=== PATIENT | female | born 1995 | race Hispanic/Latino ===

== ENCOUNTER 2019-05-26 20:12 | Emergency (ER) | payer BC, OTHER ==
[~2019-05-26] VITALS: Ht 175.3 cm; Wt 106.6 kg
[~2019-05-26 20:12] MED LIST: DEPO-PROVE150 MG/1 M IM; TRAMADOL HCL50 MG PO; [UNRECOGNIZED DRUG - OTHER] PO
[2019-05-26] MEDS ORDERED: NORCO 5-325 TA1 EACH PO (23:11)
[2019-05-26] MEDS ORDERED: ZOFRAN4 MG PO (23:11)
== END 2019-05-26 23:36 | disposition home or self-care (01) ==
LOC: ED 20:12
DX: R10.9 Unspecified abdominal pain (principal); R11.0 Nausea
CPT/HCPCS: 74177; 80053; 81001; 83690; 83735; 84703; 85025; 99284-25; J1170; J2405; J7030; Q9967

== ENCOUNTER 2019-11-14 08:17 | Emergency (ER) | payer BC, OTHER ==
[~2019-11-14] VITALS: Ht 175.3 cm; Wt 106.6 kg
[~2019-11-14 08:17] MED LIST changes: +NORCO 5-325 TA1 EACH PO; +ZOFRAN4 MG PO
[2019-11-14] MEDS ORDERED: AVIANE1 EACH PO (08:36)
[2019-11-14] MEDS ORDERED: NORCO 5-325 TA1 EACH PO (11:20)
== END 2019-11-14 11:28 | disposition home or self-care (01) ==
LOC: ED 08:17
DX: N83.202 Unspecified ovarian cyst, left side (principal); F17.200 Nicotine dependence, unspecified, uncomplicated
CPT/HCPCS: 76830; 76856; 80053; 81001; 83690; 84703; 85025; 96361; 96374; 99284-25; 99406; A9270; J2405; J7030

== ENCOUNTER 2022-05-09 08:46 | Emergency (ER) | payer BC, OTHER ==
[~2022-05-09] VITALS: Ht 175.3 cm; Wt 71.7 kg
[~2022-05-09 08:46] MED LIST changes: +AVIANE1 EACH PO
[2022-05-09] MEDS ORDERED: ESCITALOPRAM OX10 MG PO (09:06)
[2022-05-09] MEDS ORDERED: PYRIDIUM200 MG PO (09:50)
[2022-05-09] MEDS ORDERED: CEPHALEXIN500 M1 PO (09:50)
== END 2022-05-09 09:58 | disposition home or self-care (01) ==
LOC: ED 08:46
DX: N39.0 Urinary tract infection, site not specified (principal); F17.200 Nicotine dependence, unspecified, uncomplicated
CPT/HCPCS: 81001; 84703; 87088; 99283

== ENCOUNTER 2022-08-15 21:20 | Emergency (ER) | payer OTHER ==
[~2022-08-15] VITALS: Ht 175.3 cm; Wt 74.8 kg
[~2022-08-15 21:20] MED LIST changes: +CEPHALEXIN500 M1 PO; +ESCITALOPRAM OX10 MG PO; +PYRIDIUM200 MG PO
[2022-08-15] MEDS ORDERED: OMEPRAZOLE20 MG (21:59)
== END 2022-08-16 00:55 | disposition home or self-care (01) ==
LOC: ED 21:20
DX: O34.81 Maternal care for other abnormalities of pelvic organs, first trimester (principal); N83.202 Unspecified ovarian cyst, left side; O99.331 Smoking (tobacco) complicating pregnancy, first trimester; F17.200 Nicotine dependence, unspecified, uncomplicated; Z3A.01 Less than 8 weeks gestation of pregnancy; Z79.899 Other long term (current) drug therapy
CPT/HCPCS: 36415; 76801; 76817; 80053; 81001; 84702; 84703; 85025; 86900; 86901; 99284-25

== ENCOUNTER 2023-03-03 21:41 | Inpatient (IN) | payer OTHER ==
[~2023-03-03] VITALS: Ht 175.3 cm; Wt 83.9 kg
--- OUTSIDE RECORDS SUMMARY | ~2023-03-03 | XMS | Continuity of Care Document ---
Demographics + + + | Address | [facility] [address] | | | [place] [address] | + + + | Preferred Language | Unknown | + + + | Marital Status | Never | + + + | Moravian Affiliation | Unknown | + + + | Race | Unknown | + + + | Ethnic Group | or | + + + Author + + + | Author | [facility] | + + + | Organization | [facility] | + + + | Address | [address] | | | [place] [address] | + + + | Phone | | + + + Care Team Providers + + + + | Care Turbine Technician Name | Role | Phone | + + + + Unavailable | Unavailable | + + + + Unavailable | Unavailable | + + + + Unavailable | Unavailable | + + + + Unavailable | Unavailable | + + + + Unavailable | Unavailable | + + + + Allergies and Intolerances + + + + + + | date | description | facility | reaction | severity | + + + + + + | (no date) | No Known | [facility] | (no reaction) | (no severity) | | | Allergies | | | | + + + + + + Encounters No information. Functional Status No information. Immunizations No information. Medications + + + + | date | description | facility | + + + + | 2022-05-09 00:00 | MEDROXYPROGESTERONE | [facility] | | | ACETATE | | + + + + | 2022-08-16 00:00 | MEDROXYPROGESTERONE | [facility] | | | ACETATE | | + + + + | 2022-10-26 00:00 | MEDROXYPROGESTERONE | [facility] | | | ACETATE | | + + + + | 2023-01-10 00:00 | MEDROXYPROGESTERONE | [facility] | | | ACETATE | | + + + + | 2019-05-26 00:00 | ONDANSETRON HCL | [facility] | + + + + | 2019-05-26 00:00 | ONDANSETRON HCL | [facility] | + + + + | 2019-05-26 00:00 | ONDANSETRON HCL | [facility] | + + + + | 2019-05-26 00:00 | ONDANSETRON HCL | [facility] | + + + + | 2022-05-09 00:00 | PHENAZOPYRIDINE HCL | [facility] | + + + + | 2022-05-09 00:00 | PHENAZOPYRIDINE HCL | [facility] | + + + + | 2022-05-09 00:00 | PHENAZOPYRIDINE HCL | [facility] | + + + + | 2022-05-09 00:00 | PHENAZOPYRIDINE HCL | [facility] | + + + + | 2022-05-09 00:00 | CEPHALEXIN | [facility] | + + + + | 2022-05-09 00:00 | CEPHALEXIN | [facility] | + + + + | 2022-05-09 00:00 | CEPHALEXIN | [facility] | + + + + | 2022-05-09 00:00 | CEPHALEXIN | [facility] | + + + + | 2022-08-16 00:00 | OMEPRAZOLE | [facility] | + + + + | 2022-10-26 00:00 | OMEPRAZOLE | [facility] | + + + + | 2023-01-10 00:00 | OMEPRAZOLE | [facility] | + + + + | 2022-05-09 00:00 | ESCITALOPRAM OXALATE | [facility] | + + + + | 2022-08-16 00:00 | ESCITALOPRAM OXALATE | [facility] | + + + + | 2022-10-26 00:00 | ESCITALOPRAM OXALATE | [facility] | + + + + | 2023-01-10 00:00 | ESCITALOPRAM OXALATE | [facility] | + + + + | 2022-05-09 00:00 | LEVONORGESTREL-ETH | [facility] | | | ESTRADIOL | | + + + + | 2022-08-16 00:00 | LEVONORGESTREL-ETH | [facility] | | | ESTRADIOL | | + + + + | 2022-10-26 00:00 | LEVONORGESTREL-ETH | [facility] | | | ESTRADIOL | | + + + + | 2023-01-10 00:00 | LEVONORGESTREL-ETH | [facility] | | | ESTRADIOL | | + + + + | 2013-08-01 00:00 | TRAMADOL HCL | [facility] | + + + + | 2013-08-01 00:00 | TRAMADOL HCL | [facility] | + + + + | 2013-08-01 00:00 | TRAMADOL HCL | [facility] | + + + + | 2013-08-01 00:00 | TRAMADOL HCL | [facility] | + + + + | 2019-05-26 00:00 | HYDROCODONE | [facility] | | | BIT/ACETAMINOPHEN | | + + + + | 2019-05-26 00:00 | HYDROCODONE | [facility] | | | BIT/ACETAMINOPHEN | | + + + + | 2019-05-26 00:00 | HYDROCODONE | [facility] | | | BIT/ACETAMINOPHEN | | + + + + | 2019-05-26 00:00 | HYDROCODONE | [facility] | | | BIT/ACETAMINOPHEN | | + + + + Problems + + + + | date | description | facility | + + + + | 2019-05-26 00:00 | Abdominal pain | [facility] | + + + + | 2019-05-26 00:00 | Abdominal pain | [facility] | + + + + | 2019-05-26 00:00 | Abdominal pain | [facility] | + + + + | 2019-05-26 00:00 | Abdominal pain | [facility] | + + + + | 2022-05-09 00:00 | Urinary tract infection | [facility] | + + + + | 2022-05-09 00:00 | Urinary tract infection | [facility] | + + + + | 2022-05-09 00:00 | Urinary tract infection | [facility] | + + + + | 2022-05-09 00:00 | Urinary tract infection | [facility] | + + + + | 2022-05-09 08:47 | NICOTINE DEPENDENCE, | [facility] | | | UNSPECIFIED, UNCOMPLICATED | | + + + + | 2022-05-09 08:47 | URINARY TRACT INFECTION, | [facility] | | | SITE NOT SPECIFIED | | + + + + | 2022-05-09 08:47 | DYSURIA | [facility] | + + + + | 2022-08-15 21:22 | NICOTINE DEPENDENCE, | [facility] | | | UNSPECIFIED, UNCOMPLICATED | | + + + + | 2022-08-15 21:22 | UNSPECIFIED OVARIAN CYST, | [facility] | | | LEFT SIDE | | + + + + | 2022-08-15 21:22 | MATERNAL CARE FOR OTH | [facility] | | | ABNLT OF PELVIC ORGANS, | | | | FIRS | | + + + + | 2022-08-15 21:22 | SMOKING (TOBACCO) | [facility] | | | COMPLICATING , | | | | FIRST TR | | + + + + | 2022-08-15 21:22 | PELVIC AND PERINEAL PAIN | [facility] | + + + + | 2022-08-15 21:22 | LESS THAN 8 WEEKS | [facility] | | | GESTATION OF | | + + + + | 2022-08-15 21:22 | OTHER ASSISTED (CURRENT) | [facility] | | | DRUG THERAPY | | + + + + | 2022-08-16 00:00 | Cyst of left ovary | [facility] | + + + + | 2022-08-16 00:00 | Cyst of left ovary | [facility] | + + + + | 2022-08-16 00:00 | Cyst of left ovary | [facility] | + + + + | 2022-08-27 15:47 | ENCOUNTER FOR SUPRVSN OF | [facility] | | | NORMAL , FIRST | | | | TRIMESTER | | + + + + | 2022-08-27 15:47 | LESS THAN 8 WEEKS | [facility] | | | GESTATION OF | | + + + + | 2022-09-30 13:02 | HEMORRHAGE IN EARLY | [facility] | | | , UNSPECIFIED | | + + + + | 2022-09-30 13:02 | OTH RELATED | [facility] | | | CONDITIONS, FIRST TRIMESTER | | | | | | + + + + | 2022-09-30 13:02 | 11 WEEKS GESTATION OF | [facility] | | | | | + + + + | 2022-09-30 13:02 | UNSPECIFIED BLOOD TYPE, RH | [facility] | | | NEGATIVE | | + + + + | 2022-10-25 22:01 | NICOTINE DEPENDENCE, | [facility] | | | UNSPECIFIED, UNCOMPLICATED | | + + + + | 2022-10-25 22:01 | SMOKING (TOBACCO) | [facility] | | | COMPLICATING , | | | | UNSP TRI | | + + + + | 2022-10-25 22:01 | UNSPECIFIED ABDOMINAL PAIN | [facility] | | | | | + + + + | 2022-10-25 22:01 | WEEKS OF GESTATION OF | [facility] | | | NOT SPECIFIED | | + + + + | 2022-10-26 00:00 | Normal intrauterine | [facility] | | | on | | | | ultrasound | | + + + + | 2022-11-05 12:46 | SUPERVISION OF OTHER HIGH | [facility] | | | RISK PREGNANCIES, FIRST | | | | TRIMESTER | | + + + + | 2022-11-19 12:45 | SUPERVISION OF OTHER HIGH | [facility] | | | RISK PREGNANCIES, FIRST | | | | TRIMESTER | | + + + + | 2022-12-02 14:30 | SUPERVISION OF OTHER HIGH | [facility] | | | RISK PREGNANCI | | + + + + | 2022-12-06 10:48 | SUPERVISION OF OTHER HIGH | [facility] | | | RISK PREGNANCIES, FIRST | | | | TRIMESTER | | + + + + | 2022-12-16 09:49 | SUPERVISION OF OTHER HIGH | [facility] | | | RISK PREGNANCIES, FIRST | | | | TRIMESTER | | + + + + | 2022-12-31 12:42 | SUPERVISION OF OTHER HIGH | [facility] | | | RISK PREGNANCIES, FIRST | | | | TRIMESTER | | + + + + | 2023-01-10 00:00 | Contusion of foot | [facility] | + + + + | 2023-01-10 20:06 | NICOTINE DEPENDENCE, | [facility] | | | UNSPECIFIED, UNCOMPLICATED | | + + + + | 2023-01-10 20:06 | GASTRO-ESOPHAGEAL REFLUX | [facility] | | | DISEASE WITHOUT ESOPHAGIT | | + + + + | 2023-01-10 20:06 | PAIN IN LEFT TOE(S) | [facility] | + + + + | 2023-01-10 20:06 | CONTUSION OF LEFT FOOT, | [facility] | | | INITIAL ENCOUNTER | | + + + + | 2023-01-10 20:06 | OTH CAUSE OF STRIKE BY | [facility] | | | THROWN, PROJECTED OR FALL O | | | | | | + + + + | 2023-01-10 20:06 | OTHER ASSISTANT ELEMENTARY TEACHER (CURRENT) | [facility] | | | DRUG THERAPY | | + + + + | 2023-02-09 14:24 | ANTEPARTUM HEMORRHAGE, | [facility] | | | UNSPECIFIED, THIRD | | | | TRIMESTER | | + + + + | 2023-02-09 14:24 | 30 WEEKS GESTATION OF | [facility] | | | | | + + + + | 2023-02-10 11:21 | ANTEPARTUM HEMORRHAGE, | [facility] | | | UNSPECIFIED, THIRD | | | | TRIMESTER | | + + + + | 2023-02-10 11:21 | 30 WEEKS GESTATION OF | [facility] | | | | | + + + + | 2023-02-18 15:54 | CRAMP AND SPASM | [facility] | + + + + | 2023-02-18 15:54 | 31 WEEKS GESTATION OF | [facility] | | | | | + + + + | 2023-02-25 16:45 | SUPERVISION OF HIGH RISK | [facility] | | | , UNSP, THIRD | | | | TRIMESTER | | + + + + | 2023-02-25 16:45 | 32 WEEKS GESTATION OF | [facility] | | | | | + + + + Procedures No information. Results/Labs +--------+--------+ +---------+--------+---------+ | test | date | facility | value | unit | notes | +--------+--------+ +---------+--------+---------+ + + | Result panel 1 | + + + + + + + + + | | 2022-05-09 | [facility] | YELLOW | (missing) | (missing) | | (unavailable | 08:57 [facility] | | | | + + + + + + + + + | Result panel 2 | + + + + + +---------+ + + | | 2022-05-09 | [facility] | CLEAR | (missing) | (missing) | | (unavailable | 08:57 [facility] | | | | + + + +---------+ + + + + | Result panel 3 | + + + + + + + + + | | 2022-05-09 | [facility] | NEGATIVE | (missing) | (missing) | | (unavailable | 08:57 [facility] | | | | + + + + + + + + + | Result panel 4 | + + + + + + + + + | | 2022-05-09 | [facility] | NEGATIVE | (missing) | (missing) | | (unavailable | 08:57 [facility] | | | | + + + + + + + + + | Result panel 5 | + + + + + + + + + | | 2022-05-09 | [facility] | NEGATIVE | (missing) | (missing) | | (unavailable | 08:57 [facility] | | | | + + + + + + + + + | Result panel 6 | + + + + + +---------+ + + | | 2022-05-09 | [facility] | 1.025 | (missing) | (missing) | | (unavailable | 08:57 [facility] | | | | + + + +---------+ + + + + | Result panel 7 | + + + + + + + + + | | 2022-05-09 | [facility] | MODERATE | (missing) | (missing) | | (unavailable | 08:57 [facility] | | | | + + + + + + + + + | Result panel 8 | + + + + + +-------+ + + | | 2022-05-09 | [facility] | 6.0 | (missing) | (missing) | | (unavailable | 08:57 [facility] | | | | + + + +-------+ + + + + | Result panel 9 | + + + + + + + + + | | 2022-05-09 | [facility] | NEGATIVE | (missing) | (missing) | | (unavailable | 08:57 [facility] | | | | + + + + + + + + + | Result panel 10 | + + + + + + + + + | | 2022-05-09 | [facility] | NORMAL | (missing) | (missing) | | (unavailable | 08:57 [facility] | | | | + + + + + + + + + | Result panel 11 | + + + + + + + + + | | 2022-05-09 | [facility] | NEGATIVE | (missing) | (missing) | | (unavailable | 08:57 [facility] | | | | + + + + + + + + + | Result panel 12 | + + + + + + + + + | | 2022-05-09 | [facility] | MODERATE | (missing) | (missing) | | (unavailable | 08:57 [facility] | | | | + + + + + + + + + | Result panel 13 | + + + + + +---------+ + + | | 2022-05-09 | [facility] | 12-20 | (missing) | (missing) | | (unavailable | 08:57 [facility] | | | | + + + +---------+ + + + + | Result panel 14 | + + + + + +--------+ + + | | 2022-05-09 | [facility] | 7-11 | (missing) | (missing) | | (unavailable | 08:57 [facility] | | | | + + + +--------+ + + + + | Result panel 15 | + + + + + +-----+ + + | | 2022-05-09 | [facility] | 0 | (missing) | (missing) | | (unavailable | 08:57 [facility] | | | | + + + +-----+ + + + + | Result panel 16 | + + + + + + + + + | | 2022-05-09 | [facility] | NONE SEEN | (missing) | (missing) | | (unavailable | 08:57 [facility] | | | | + + + + + + + + + | Result panel 17 | + + + + + +--------+ + + | | 2022-05-09 | [facility] | RARE | (missing) | (missing) | | (unavailable | 08:57 [facility] | | | | + + + +--------+ + + + + | Result panel 18 | + + + + + + + + + | | 2022-05-09 | [facility] | NONE SEEN | (missing) | (missing) | | (unavailable | 08:57 [facility] | | | | + + + + + + + + + | Result panel 19 | + + + + + +-------+ + + | | 2022-05-09 | [facility] | Yes | (missing) | (missing) | | (unavailable | 08:57 [facility] | | | | + + + +-------+ + + + + | Result panel 20 | + + + + + + + + + | | 2022-05-09 | [facility] | CLEAN CATCH | (missing) | (missing) | | (unavailable | 08:57 [facility] | | | | + + + + + + + + + | Result panel 21 | + + + + + + + + + | | 2022-05-09 | [facility] | NEGATIVE | (missing) | (missing) | | (unavailable | 08:57 [facility] | | | | + + + + + + + + + | Result panel 22 | + + + + + +-----+ + + | | 2022-08-15 | [facility] | A | (missing) | (missing) | | (unavailable | 21:50:08 [facility] | | | | + + + +-----+ + + + + | Result panel 23 | + + + + + + + + + | | 2022-08-15 | [facility] | NEGATIVE | (missing) | (missing) | | (unavailable | 21:50:08 [facility] | | | | + + + + + + + + + | Result panel 24 | + + + + + +-------+ + + | | 2022-08-15 | [facility] | 8.5 | (missing) | (missing) | | (unavailable | 21:50:08 [facility] | | | | + + + +-------+ + + + + | Result panel 25 | + + + + + +--------+ + + | | 2022-08-15 | [facility] | 3.96 | (missing) | (missing) | | (unavailable | 21:50:08 [facility] | | | | + + + +--------+ + + + + | Result panel 26 | + + + + + +--------+ + + | | 2022-08-15 | [facility] | 13.0 | (missing) | (missing) | | (unavailable | 21:50:08 [facility] | | | | + + + +--------+ + + + + | Result panel 27 | + + + + + +--------+ + + | | 2022-08-15 | [facility] | 37.2 | (missing) | (missing) | | (unavailable | 21:50:08 [facility] | | | | + + + +--------+ + + + + | Result panel 28 | + + + + + +--------+ + + | | 2022-08-15 | [facility] | 94.0 | (missing) | (missing) | | (unavailable | 21:50:08 [facility] | | | | + + + +--------+ + + + + | Result panel 29 | + + + + + +--------+ + + | | 2022-08-15 | [facility] | 32.8 | (missing) | (missing) | | (unavailable | 21:50:08 [facility] | | | | + + + +--------+ + + + + | Result panel 30 | + + + + + +--------+ + + | | 2022-08-15 | [facility] | 34.9 | (missing) | (missing) | | (unavailable | 21:50:08 [facility] | | | | + + + +--------+ + + + + | Result panel 31 | + + + + + +--------+ + + | | 2022-08-15 | [facility] | 12.4 | (missing) | (missing) | | (unavailable | 21:50:08 [facility] | | | | + + + +--------+ + + + + | Result panel 32 | + + + + + +-------+ + + | | 2022-08-15 | [facility] | 183 | (missing) | (missing) | | (unavailable | 21:50:08 [facility] | | | | + + + +-------+ + + + + | Result panel 33 | + + + + + +--------+ + + | | 2022-08-15 | [facility] | 57.3 | (missing) | (missing) | | (unavailable | 21:50:08 [facility] | | | | + + + +--------+ + + + + | Result panel 34 | + + + + + +--------+ + + | | 2022-08-15 | [facility] | 35.2 | (missing) | (missing) | | (unavailable | 21:50:08 [facility] | | | | + + + +--------+ + + + + | Result panel 35 | + + + + + +-------+ + + | | 2022-08-15 | [facility] | 6.2 | (missing) | (missing) | | (unavailable | 21:50:08 [facility] | | | | + + + +-------+ + + + + | Result panel 36 | + + + + + +-------+ + + | | 2022-08-15 | [facility] | 0.9 | (missing) | (missing) | | (unavailable | 21:50:08 [facility] | | | | + + + +-------+ + + + + | Result panel 37 | + + + + + +-------+ + + | | 2022-08-15 | [facility] | 0.4 | (missing) | (missing) | | (unavailable | 21:50:08 [facility] | | | | + + + +-------+ + + + + | Result panel 38 | + + + + + + + + + | | 2022-08-15 | [facility] | YELLOW | (missing) | (missing) | | (unavailable | 21:50:08 [facility] | | | | + + + + + + + + + | Result panel 39 | + + + + + + + + + | | 2022-08-15 | [facility] | CLOUDY | (missing) | (missing) | | (unavailable | 21:50:08 [facility] | | | | + + + + + + + + + | Result panel 40 | + + + + + + + + + | | 2022-08-15 | [facility] | NEGATIVE | (missing) | (missing) | | (unavailable | 21:50:08 [facility] | | | | + + + + + + + + + | Result panel 41 | + + + + + + + + + | | 2022-08-15 | [facility] | NEGATIVE | (missing) | (missing) | | (unavailable | 21:50:08 [facility] | | | | + + + + + + + + + | Result panel 42 | + + + + + + + + + | | 2022-08-15 | [facility] | NEGATIVE | (missing) | (missing) | | (unavailable | 21:50:08 [facility] | | | | + + + + + + + + + | Result panel 43 | + + + + + +---------+ + + | | 2022-08-15 | [facility] | 1.015 | (missing) | (missing) | | (unavailable | 21:50:08 [facility] | | | | + + + +---------+ + + + + | Result panel 44 | + + + + + + + + + | | 2022-08-15 | [facility] | NEGATIVE | (missing) | (missing) | | (unavailable | 21:50:08 [facility] | | | | + + + + + + + + + | Result panel 45 | + + + + + +-------+ + + | | 2022-08-15 | [facility] | 8.0 | (missing) | (missing) | | (unavailable | 21:50:08 [facility] | | | | + + + +-------+ + + + + | Result panel 46 | + + + + + + + + + | | 2022-08-15 | [facility] | NEGATIVE | (missing) | (missing) | | (unavailable | 21:50:08 [facility] | | | | + + + + + + + + + | Result panel 47 | + + + + + +-------+ + + | | 2022-08-15 | [facility] | 1.0 | (missing) | (missing) | | (unavailable | 21:50:08 [facility] | | | | + + + +-------+ + + + + | Result panel 48 | + + + + + + + + + | | 2022-08-15 | [facility] | NEGATIVE | (missing) | (missing) | | (unavailable | 21:50:08 [facility] | | | | + + + + + + + + + | Result panel 49 | + + + + + +---------+ + + | | 2022-08-15 | [facility] | LARGE | (missing) | (missing) | | (unavailable | 21:50:08 [facility] | | | | + + + +---------+ + + + + | Result panel 50 | + + + + + +-------+ + + | | 2022-08-15 | [facility] | 4-6 | (missing) | (missing) | | (unavailable | 21:50:08 [facility] | | | | + + + +-------+ + + + + | Result panel 51 | + + + + + +--------+ + + | | 2022-08-15 | [facility] | 7-11 | (missing) | (missing) | | (unavailable | 21:50:08 [facility] | | | | + + + +--------+ + + + + | Result panel 52 | + + + + + + + + + | | 2022-08-15 | [facility] | SQUAMOUS 3+ | (missing) | (missing) | | (unavailable | 21:50:08 [facility] | | | | + + + + + + + + + | Result panel 53 | + + + + + +------+ + + | | 2022-08-15 | [facility] | No | (missing) | (missing) | | (unavailable | 21:50:08 [facility] | | | | + + + +------+ + + + + | Result panel 54 | + + + + + + + + + | | 2022-08-15 | [facility] | CLEAN CATCH | (missing) | (missing) | | (unavailable | 21:50:08 [facility] | | | | + + + + + + + + + | Result panel 55 | + + + + + +-------+---------+ + | | 2022-08-15 | [facility] | 100 | mg/dL | (missing) | | (unavailable | 21:50:08 [facility] | | | | + + + +-------+---------+ + + + | Result panel 56 | + + + + + +------+---------+ + | | 2022-08-15 | [facility] | 13 | mg/dL | (missing) | | (unavailable | 21:50:08 [facility] | | | | + + + +------+---------+ + + + | Result panel 57 | + + + + + +--------+---------+ + | | 2022-08-15 | [facility] | 0.76 | mg/dL | (missing) | | (unavailable | 21:50:08 [facility] | | | | + + + +--------+---------+ + + + | Result panel 58 | + + + + + +-------+ + + | | 2022-08-15 | [facility] | 111 | (missing) | (missing) | | (unavailable | 21:50:08 [facility] | | | | + + + +-------+ + + + + | Result panel 59 | + + + + + +---------+ + + | | 2022-08-15 | [facility] | 17.10 | (missing) | (missing) | | (unavailable | 21:50:08 [facility] | | | | + + + +---------+ + + + + | Result panel 60 | + + + + + +-------+ + + | | 2022-08-15 | [facility] | 139 | (missing) | (missing) | | (unavailable | 21:50:08 [facility] | | | | + + + +-------+ + + + + | Result panel 61 | + + + + + +-------+ + + | | 2022-08-15 | [facility] | 3.5 | (missing) | (missing) | | (unavailable | 21:50:08 [facility] | | | | + + + +-------+ + + + + | Result panel 62 | + + + + + +-------+ + + | | 2022-08-15 | [facility] | 105 | (missing) | (missing) | | (unavailable | 21:50:08 [facility] | | | | + + + +-------+ + + + + | Result panel 63 | + + + + + +------+ + + | | 2022-08-15 | [facility] | 26 | (missing) | (missing) | | (unavailable | 21:50:08 | [facility] | | | | + + + +------+ + + + + | Result panel 64 | + + + + + +--------+ + + | | 2022-08-15 | [facility] | 11.5 | (missing) | (missing) | | (unavailable | 21:50:08 | [facility] | | | | + + + +--------+ + + + + | Result panel 65 | + + + + + +-------+---------+ + | | 2022-08-15 | [facility] | 8.5 | mg/dL | (missing) | | (unavailable | 21:50:08 | [facility] | | | | + + + +-------+---------+ + + + | Result panel 66 | + + + + + +-------+ + + | | 2022-08-15 | [facility] | 6.9 | (missing) | (missing) | | (unavailable | 21:50:08 | [facility] | | | | + + + +-------+ + + + + | Result panel 67 | + + + + + +-------+ + + | | 2022-08-15 | [facility] | 3.6 | (missing) | (missing) | | (unavailable | 21:50:08 | [facility] | | | | + + + +-------+ + + + + | Result panel 68 | + + + + + +-------+ + + | | 2022-08-15 | [facility] | 3.3 | (missing) | (missing) | | (unavailable | 21:50:08 | [facility] | | | | + + + +-------+ + + + + | Result panel 69 | + + + + + +--------+ + + | | 2022-08-15 | [facility] | 1.09 | (missing) | (missing) | | (unavailable | 21:50:08 | [facility] | | | | + + + +--------+ + + + + | Result panel 70 | + + + + + +-------+ + + | | 2022-08-15 | [facility] | 0.4 | (missing) | (missing) | | (unavailable | 21:50:08 | [facility] | | | | + + + +-------+ + + + + | Result panel 71 | + + + + + +------+ + + | | 2022-08-15 | [facility] | 13 | (missing) | (missing) | | (unavailable | 21:50:08 | [facility] | | | | + + + +------+ + + + + | Result panel 72 | + + + + + +------+ + + | | 2022-08-15 | [facility] | 15 | (missing) | (missing) | | (unavailable | 21:50:08 | [facility] | | | | + + + +------+ + + + + | Result panel 73 | + + + + + +------+ + + | | 2022-08-15 | [facility] | 70 | (missing) | (missing) | | (unavailable | 21:50:08 | [facility] | | | | + + + +------+ + + + + | Result panel 74 | + + + + + +--------+ + + | | 2022-08-15 | [facility] | 2808 | (missing) | (missing) | | (unavailable | 21:50:08 | [facility] | | | | + + + +--------+ + + + + | Result panel 75 | + + + + + + + + + | | 2022-08-15 | [facility] | POSITIVE | (missing) | (missing) | | (unavailable | 21:50:08 | [facility] | | | | + + + + + + + + + | Result panel 76 | + + + + + + + + + | | 2022-10-25 | [facility] | YELLOW | (missing) | (missing) | | (unavailable | 22:19:07 | [facility] | | | | + + + + + + + + + | Result panel 77 | + + + + + +---------+ + + | | 2022-10-25 | [facility] | CLEAR | (missing) | (missing) | | (unavailable | ::07 | [facility] | | | | + + + +---------+ + + + + | Result panel 78 | + + + + + + + + + | | 2022-10-25 | [facility] | NEGATIVE | (missing) | (missing) | | (unavailable | :19:07 | [facility] | | | | + + + + + + + + + | Result panel 79 | + + + + + + + + + | | 2022-10-25 | [facility] | NEGATIVE | (missing) | (missing) | | (unavailable | 22:19:07 | [facility] | | | | + + + + + + + + + | Result panel 80 | + + + + + + + + + | | 2022-10-25 | [facility] | NEGATIVE | (missing) | (missing) | | (unavailable | 22:19:07 | [facility] | | | | + + + + + + + + + | Result panel 81 | + + + + + +---------+ + + | | 2022-10-25 | [facility] | 1.025 | (missing) | (missing) | | (unavailable | 22:19:07 [facility] | | | | + + + +---------+ + + + + | Result panel 82 | + + + + + + + + + | | 2022-10-25 | [facility] | NEGATIVE | (missing) | (missing) | | (unavailable | 22:19:07 [facility] | | | | + + + + + + + + + | Result panel 83 | + + + + + +-------+ + + | | 2022-10-25 | [facility] | 6.0 | (missing) | (missing) | | (unavailable | 22:19:07 [facility] | | | | + + + +-------+ + + + + | Result panel 84 | + + + + + + + + + | | 2022-10-25 | [facility] | NEGATIVE | (missing) | (missing) | | (unavailable | 22:19:07 [facility] | | | | + + + + + + + + + | Result panel 85 | + + + + + + + + + | | 2022-10-25 | [facility] | NORMAL | (missing) | (missing) | | (unavailable | 22:19:07 [facility] | | | | + + + + + + + + + | Result panel 86 | + + + + + + + + + | | 2022-10-25 | [facility] | NEGATIVE | (missing) | (missing) | | (unavailable | 22:19:07 [facility] | | | | + + + + + + + + + | Result panel 87 | + + + + + + + + + | | 2022-10-25 | [facility] | NEGATIVE | (missing) | (missing) | | (unavailable | 22:19:07 [facility] | | | + + + + + + + + + | Result panel 88 | + + + + + +--------+ + + | | 2022-10-25 | [facility] | 13.2 | (missing) | (missing) | | (unavailable | :25:07 | [facility] | | | | + + + +--------+ + + + + | Result panel 89 | + + + + + +--------+ + + | | 2022-10-25 | [facility] | 75.8 | (missing) | (missing) | | (unavailable | ::07 | [facility] | | | | + + + +--------+ + + + + | Result panel 90 | + + + + + +--------+ + + | | 2022-10-25 | [facility] | 18.6 | (missing) | (missing) | | (unavailable | 22:25:07 [facility] | | | + + + +--------+ + + + + | Result panel 91 | + + + + + +-------+ + + | | 2022-10-25 | [facility] | 4.8 | (missing) | (missing) | | (unavailable | 22:25:07 [facility] | | | + + + +-------+ + + + + | Result panel 92 | + + + + + +-------+ + + | | 2022-10-25 | [facility] | 0.6 | (missing) | (missing) | | (unavailable | [facility]:25:07 [facility] | | | + + + +-------+ + + + + | Result panel 93 | + + + + + +-------+ + + | | 2022-10-25 | [facility] | 0.2 | (missing) | (missing) | | (unavailable | 22::07 [facility] | | | + + + +-------+ + + + + | Result panel 94 | + + + + + +--------+ + + | | 2022-10-25 | [facility] | 3.98 | (missing) | (missing) | | (unavailable | [facility]:25:07 [facility] | | | + + + +--------+ + + + + | Result panel 95 | + + + + + +------+---------+ + | | 2022-10-25 | [facility] | 88 | mg/dL | (missing) | | (unavailable | 22:25:07 [facility] | | | + + + +------+---------+ + + + | Result panel 96 | + + + + + +-----+---------+ + | | 2022-10-25 | [facility] | 8 | mg/dL | (missing) | | (unavailable | 22:25:07 [facility] | | | | + + + +-----+---------+ + + + | Result panel 97 | + + + + + +--------+---------+ + | | 2022-10-25 | [facility] | 0.51 | mg/dL | (missing) | | (unavailable | 22:25:07 [facility] | | | + + + +--------+---------+ + + + | Result panel 98 | + + + + + +--------+ + + | | 2022-10-25 | [facility] | 12.7 | (missing) | (missing) | | (unavailable | 22::07 [facility] | | | | + + + +--------+ + + + + | Result panel 99 | + + + + + +-------+ + + | | 2022-10-25 | [facility] | 131 | (missing) | (missing) | | (unavailable | ::07 | [facility] | | | + + + +-------+ + + + + | Result panel 100 | + + + + + +---------+ + + | | 2022-10-25 | [facility] | 15.68 | (missing) | (missing) | | (unavailable | 22:25:07 [facility] | | | + + + +---------+ + + + + | Result panel 101 | + + + + + +-------+ + + | | 2022-10-25 | [facility] | 137 | (missing) | (missing) | | (unavailable | ::07 [facility] | | | + + + +-------+ + + + + | Result panel 102 | + + + + + +-------+ + + | | 2022-10-25 | [facility] | 3.6 | (missing) | (missing) | | (unavailable | 22:25:07 [facility] | | | + + + +-------+ + + + + | Result panel 103 | + + + + + +-------+ + + | | 2022-10-25 | [facility] | 103 | (missing) | (missing) | | (unavailable | ::07 [facility] | | | + + + +-------+ + + + + | Result panel 104 | + + + + + +------+ + + | | 2022-10-25 | [facility] | 25 | (missing) | (missing) | | (unavailable | 22:25:07 [facility] | | | + + + +------+ + + + + | Result panel 105 | + + + + + +--------+ + + | | 2022-10-25 | [facility] | 12.6 | (missing) | (missing) | | (unavailable | ::07 [facility] | | | + + + +--------+ + + + + | Result panel 106 | + + + + + +-------+---------+ + | | 2022-10-25 | [facility] | 8.4 | mg/dL | (missing) | | (unavailable | [facility]:25:07 [facility] | | | + + + +-------+---------+ + + + | Result panel 107 | + + + + + +-------+---------+ + | | 2022-10-25 | [facility] | 1.8 | mg/dL | (missing) | | (unavailable | [facility]:25:07 [facility] | | | + + + +-------+---------+ + + + | Result panel 108 | + + + + + +-------+ + + | | 2022-10-25 | [facility] | 6.6 | (missing) | (missing) | | (unavailable | [facility]25:07 [facility] | | | + + + +-------+ + + + + | Result panel 109 | + + + + + +--------+ + + | | 2022-10-25 | [facility] | 37.9 | (missing) | (missing) | | (unavailable | [facility]25:07 [facility] | | | + + + +--------+ + + + + | Result panel 110 | + + + + + +-------+ + + | | 2022-10-25 | [facility] | 3.0 | (missing) | (missing) | | (unavailable | [facility]25:07 [facility] | | | + + + +-------+ + + + + | Result panel 111 | + + + + + +-------+ + + | | 2022-10-25 | [facility] | 3.6 | (missing) | (missing) | | (unavailable | 22:25:07 [facility] | | | + + + +-------+ + + + + | Result panel 112 | + + + + + +--------+ + + | | 2022-10-25 | [facility] | 0.83 | (missing) | (missing) | | (unavailable | ::07 [facility] | | | | + + + +--------+ + + + + | Result panel 113 | + + + + + +-------+ + + | | 2022-10-25 | [facility] | 0.4 | (missing) | (missing) | | (unavailable | ::07 [facility] | | | | + + + +-------+ + + + + | Result panel 114 | + + + + + +------+ + + | | 2022-10-25 | [facility] | 15 | (missing) | (missing) | | (unavailable | 22[facility]25:07 [facility] | | | + + + +------+ + + + + | Result panel 115 | + + + + + +------+ + + | | 2022-10-25 | [facility] | 15 | (missing) | (missing) | | (unavailable | [facility]25:07 [facility] | | | + + + +------+ + + + + | Result panel 116 | + + + + + +------+ + + | | 2022-10-25 | [facility] | 58 | (missing) | (missing) | | (unavailable | :07 [facility] | | | | + + + +------+ + + + + | Result panel 117 | + + + + + + + + + | | 2022-10-25 | [facility] | POSITIVE | (missing) | (missing) | | (unavailable | :07 [facility] | | | | + + + + + + + + + | Result panel 118 | + + + + + +--------+ + + | | 2022-10-25 | [facility] | 95.2 | (missing) | (missing) | | (unavailable | 22[facility]25:07 [facility] | | | + + + +--------+ + + + + | Result panel 119 | + + + + + +--------+ + + | | 2022-10-25 | [facility] | 32.0 | (missing) | (missing) | | (unavailable | [facility]25:07 [facility] | | | + + + +--------+ + + + + | Result panel 120 | + + + + + +--------+ + + | | 2022-10-25 | [facility] | 33.6 | (missing) | (missing) | | (unavailable | [facility]:25:07 [facility] | | | + + + +--------+ + + + + | Result panel 121 | + + + + + +--------+ + + | | 2022-10-25 | [facility] | 12.7 | (missing) | (missing) | | (unavailable | [facility]25:07 [facility] | | | + + + +--------+ + + + + | Result panel 122 | + + + + + +-------+ + + | | 2022-10-25 | [facility] | 222 | (missing) | (missing) | | (unavailable | [facility]25:07 [facility] | | | + + + +-------+ + + Social History No information. Vital Signs + + + +---------+ | date | measurement | value | units | + + + +---------+ | 2022-05-09 00:00 | BMI | 23.3 | kg/m2 | + + + +---------+ | 2022-05-09 00:00 | BP_diastolic | 68 | mmHg | + + + +---------+ | 2022-05-09 00:00 | BP_systolic | 108 | mmHg | + + + +---------+ | 2022-05-09 00:00 | heart_rate | 89 | /min | + + + +---------+ | 2022-05-09 00:00 | height_metric | 175.26 | cm | + + + +---------+ | 2022-05-09 00:00 | height_standard | 69 | in | + + + +---------+ | 2022-05-09 00:00 | o2_saturation | 99 | % | + + + +---------+ | 2022-05-09 00:00 | respiration_rate | 16 | /min | + + + +---------+ | 2022-05-09 00:00 | temperature_metric | 37 | C | | | | | | + + + +---------+ | 2022-05-09 00:00 | | 98.6 | F | | | temperature_standar | | | | | d | | | + + + +---------+ | 2022-05-09 00:00 | weight_metric | 71.67 | kg | + + + +---------+ | 2022-05-09 00:00 | weight_standard | 158 | lb | + + + +---------+ | 2022-05-09 00:00 | weight_standard | 158.01 | lb | + + + +---------+ | 2022-08-15 00:00 | BMI | 24.4 | kg/m2 | + + + +---------+ | 2022-08-15 00:00 | height_metric | 175.26 | cm | + + + +---------+ | 2022-08-15 00:00 | height_standard | 69 | in | + + + +---------+ | 2022-08-15 00:00 | weight_metric | 74.8 | kg | + + + +---------+ | 2022-08-15 00:00 | weight_standard | 164.91 | lb | + + + +---------+ | 2022-08-16 00:00 | BP_diastolic | 64 | mmHg | + + + +---------+ | 2022-08-16 00:00 | BP_systolic | 99 | mmHg | + + + +---------+ | 2022-08-16 00:00 | heart_rate | 70 | /min | + + + +---------+ | 2022-08-16 00:00 | o2_saturation | 99 | % | + + + +---------+ | 2022-08-16 00:00 | respiration_rate | 16 | /min | + + + +---------+ | 2022-08-16 00:00 | temperature_metric | 37 | C | | | | | | + + + +---------+ | 2022-08-16 00:00 | | 98.6 | F | | | temperature_standar | | | | | d | | | + + + +---------+ | 2022-10-25 00:00 | BMI | 25.1 | kg/m2 | + + + +---------+ | 2022-10-25 00:00 | height_metric | 175.26 | cm | + + + +---------+ | 2022-10-25 00:00 | height_standard | 69 | in | + + + +---------+ | 2022-10-25 00:00 | weight_metric | 77 | kg | + + + +---------+ | 2022-10-25 00:00 | weight_standard | 169.76 | lb | + + + +---------+ | 2022-10-26 00:00 | BP_diastolic | 59 | mmHg | + + + +---------+ | 2022-10-26 00:00 | BP_systolic | 97 | mmHg | + + + +---------+ | 2022-10-26 00:00 | heart_rate | 90 | /min | + + + +---------+ | 2022-10-26 00:00 | o2_saturation | 97 | % | + + + +---------+ | 2022-10-26 00:00 | respiration_rate | 14 | /min | + + + +---------+ | 2022-10-26 00:00 | temperature_metric | 36.83 | C | | | | | | + + + +---------+ | 2022-10-26 00:00 | | 98.3 | F | | | temperature_standar | | | | | d | | | + + + +---------+ | 2023-01-10 00:00 | BMI | 26.4 | kg/m2 | + + + +---------+ | 2023-01-10 00:00 | BP_diastolic | 63 | mmHg | + + + +---------+ | 2023-01-10 00:00 | BP_systolic | 102 | mmHg | + + + +---------+ | 2023-01-10 00:00 | heart_rate | 88 | /min | + + + +---------+ | 2023-01-10 00:00 | height_metric | 175.26 | cm | + + + +---------+ | 2023-01-10 00:00 | height_standard | 69 | in | + + + +---------+ | 2023-01-10 00:00 | o2_saturation | 99 | % | + + + +---------+ | 2023-01-10 00:00 | respiration_rate | 16 | /min | + + + +---------+ | 2023-01-10 00:00 | temperature_metric | 37 | C | | | | | | + + + +---------+ | 2023-01-10 00:00 | | 98.6 | F | | | temperature_standar | | | | | d | | | + + + +---------+ | 2023-01-10 00:00 | weight_metric | 81 | kg | + + + +---------+ | 2023-01-10 00:00 | weight_standard | 178.57 | lb | + + + +---------+ | 2023-01-10 00:00 | weight_standard | 178.58 | lb | + + + +---------+"
[~2023-03-03 21:41] MED LIST changes: +AZESCO TABLET1 EACH PO; +OMEPRAZOLE20 MG
[2023-03-03 23:20] LABS: BASOPHILS 0.2 % (0-2); HEMATOCRIT 35.8 % (35.0-50.0); HEMOGLOBIN 12.1 g/dL (12.0-18.0); LYMPHOCYTES 10.4 % (24-44); MCH 31.9 (27-36); MCHC 33.7 g/dl (30-36); MCV 94.7 fl (81-99); NEUTROPHILS 82.4 % (39-80); PLATELET COUNT 211 K/uL (140-440); RBC 3.78 M/ul (4.3-5.7); RDW 12.7 (10.5-15.0)
[2023-03-04 00:50] VITALS: BP 100/59
--- NOTE | 2023-03-04 11:58 | PR ---
[facility] [address] [place], [place] [address] Signed AP Progress Notes Datetime Report Generated by CPN: 03/04/2023 11:58 Chief Complaint: Pyelonephritis EGA: 33.3 PHYSICAL EXAM: [id number] General: Normal HEENT: Normal Neurologic: Normal Back: Abnormal Extremities: Normal Physical Exam Comments: Bilateral CVA tenderness R > L Impression: 27 yo @ 33w4d with pyelonephritis. Reports pain not as significant this morning. No nausea or vomiting reported. Tolerating regular diet, ambulating, pain controlled, voding on own. Plan: Continue with IV antibiotics. Will likely continue for total of 48 hours and then discharge home with oral treatment. VITAL SIGNS: [id number] Vital Signs: Reviewed EXAM: [id number] Dilatation: 3.0 Effacement: 50 Station: -3 Contraction Comments: q 2-3 min, unchanged from prior encounters MEMBRANES: [id number] Pooling: Negative Membranes: Intact FETUS A: [id number] FHR Baseline: 150 Variability: Moderate 6-25bpm Accelerations: 15X15 Deceleration: Late FHR Category: Category I FHR Comments: No evidence of acidemia Gestation by US: 33.3 Presentation: Vertex FETUS B: [id number] PROGRESS NOTES: [id number] Signing Physician: Reji Zhang MD *Electronically Signed* 03/04/23 1158 REJI ZHANG MD PATIENT NAME: SUSANNE TEMPLE PROGRESS NOTE DATE OF : 95 PHYSICIAN: REJI ZHANG MD RPT #: [id number] REPORT IS CONFIDENTIAL AND NOT TO BE RELEASED WITHOUT AUTHORIZATION [address] [address] Signed Copies: ~ *Electronically Signed* 03/04/23 1158 REJI ZHANG MD PATIENT NAME: SUSANNE TEMPLE PROGRESS NOTE DATE OF : 95 PHYSICIAN: REJI ZHANG MD RPT #: [id number] REPORT IS CONFIDENTIAL AND NOT TO BE RELEASED WITHOUT AUTHORIZATION
--- NOTE | 2023-03-05 10:42 | PR ---
[facility] [address] [place], [place] [address] Signed AP Progress Notes Datetime Report Generated by CPN: 03/05/2023 10:42 Chief Complaint: Pyelonephritis EGA: 33.3 PHYSICAL EXAM: [id number] General: Normal HEENT: Normal Neurologic: Normal Back: Normal Extremities: Normal Physical Exam Comments: CVA tenderness resolved Impression: 27 yo @ 33w5d with pyelonephritis. HD #3. Doing well. Reporting decreased pain. Tolerating regular diet, ambulating, voiding, +BM, pain controlled. No concerns or complaints. Plan: Continue IV ceftriaxone Saline lock IV Likely discharge home tomorrow on PO antibiotics to finish course of treatment and additionall prophylaxis treatment for remainder of . VITAL SIGNS: [id number] Vital Signs: Reviewed EXAM: [id number] Dilatation: 3.0 Effacement: 50 Station: -3 Contraction Comments: q 2-3 min, unchanged from prior encounters MEMBRANES: [id number] Pooling: Negative Membranes: Intact FETUS A: [id number] FHR Baseline: 150 Variability: Moderate 6-25bpm Accelerations: 15X15 Deceleration: Late FHR Category: Category I FHR Comments: No evidence of acidemia Gestation by US: 33.3 Presentation: Vertex FETUS B: [id number] PROGRESS NOTES: [id number] *Electronically Signed* 03/05/23 1042 REJI ZHANG MD PATIENT NAME: SUSANNE TEMPLE PROGRESS NOTE DATE OF : 95 PHYSICIAN: REJI ZHANG MD RPT #: [id number] REPORT IS CONFIDENTIAL AND NOT TO BE RELEASED WITHOUT AUTHORIZATION [address] [address] Signed Signing Physician: Reji Zhang MD Copies: ~ *Electronically Signed* 03/05/23 1042 REJI ZHANG MD PATIENT NAME: SUSANNE TEMPLE PROGRESS NOTE DATE OF : 95 PHYSICIAN: REJI ZHANG MD RPT #: [id number] REPORT IS CONFIDENTIAL AND NOT TO BE RELEASED WITHOUT AUTHORIZATION
--- NOTE | 2023-03-06 07:45 | PR ---
[facility] [address] [facility] [place], [place] [address] Signed AP Progress Notes Datetime Report Generated by LAURIE: 03/06/2023 07:45 Chief Complaint: Pyelonephritis EGA: 33.3 PHYSICAL EXAM: [id number] General: Normal HEENT: Normal Neurologic: Normal Back: Normal Abdomen: Normal Extremities: Normal Physical Exam Comments: Bilateral CVA tenderness resolved. Impression: 27 yo @ 33w6d with pyelonephritis. HD #4. Doing well. Denies MONAHAN, CP, SOB, F/C, N/V, RUQ pain, changes in vision, vaginal bleeding or discharge, LOF. +FM. Tolerating regular diet, ambulating, voding on own, pain controlled, +BM. Reports she feels better, pain resolved, and ready to go home. Plan: Discharge home Will send home on Keflex to finish out treatment and for prophylaxis for remainder of She will follow up culture results at her next clinic appt on TuesdayMarch 08. VITAL SIGNS: [id number] Vital Signs: Reviewed EXAM: [id number] Dilatation: 3.0 Effacement: 50 Station: -3 Contraction Comments: q 2-3 min, unchanged from prior encounters MEMBRANES: [id number] Pooling: Negative Membranes: Intact FETUS A: [id number] FHR Baseline: 150 Variability: Moderate 6-25bpm Accelerations: 15X15 Deceleration: Late FHR Category: Category I FHR Comments: No evidence of acidemia Gestation by US: 33.3 Presentation: Vertex *Electronically Signed* 03/06/23 0745 ION CARTER MD PATIENT NAME: SUSANNE TEMPLE PROGRESS NOTE DATE OF : 95 PHYSICIAN: ION CARTER MD RPT #: [id number] REPORT IS CONFIDENTIAL AND NOT TO BE RELEASED WITHOUT AUTHORIZATION [address] [place] [address] Signed FETUS B: [id number] PROGRESS NOTES: [id number] Signing Physician: Ion Carter MD Copies: ~ *Electronically Signed* 03/06/23 0745 ION CARTER MD PATIENT NAME: SUSANNE TEMPLE PROGRESS NOTE DATE OF : 95 PHYSICIAN: ION CARTER MD RPT #: [id number] REPORT IS CONFIDENTIAL AND NOT TO BE RELEASED WITHOUT AUTHORIZATION
== END 2023-03-06 10:25 | disposition home or self-care (01) | DRG 833 ==
LOC: FBCO 21:41 → FBC 22:15
PROVIDERS: ADMIT Obstetrics & Gynecology; ATTEND Obstetrics & Gynecology
DX: O23.03 Infections of kidney in pregnancy, third trimester (principal); Z3A.33 33 weeks gestation of pregnancy
CPT/HCPCS: 36415; 85025; A9270; J0696; J2405; J7121

== ENCOUNTER 2023-03-17 02:14 | Inpatient (IN) | payer OTHER ==
[~2023-03-17] VITALS: Ht 175.3 cm; Wt 86.6 kg
--- OUTSIDE RECORDS SUMMARY | ~2023-03-17 | XMS | Continuity of Care Document ---
Demographics + + + | Address | [address] | | | [place] [address] | + + + | Preferred Language | Unknown | + + + | Marital Status | Never | + + + | Holiness Affiliation | Unknown | + + + | Race | Unknown | + + + | Ethnic Group | or | + + + Author + + + | Author | [facility] | + + + | Organization | [facility] | + + + | Address | [address] [facility] | | | [place] [address] | + + + | Phone | | + + + Care Team Providers + + + + | Care Credit Administration Officer Name | Role | Phone | + [...] + | 2022-05-09 00:00 | MEDROXYPROGESTERONE | [facility] | | | ACETATE | | + + + + | 2022-08-16 00:00 | MEDROXYPROGESTERONE | [facility] | | | ACETATE | | + + + + | 2022-10-26 00:00 | MEDROXYPROGESTERONE | [facility] | | | ACETATE | | + + + + | 2023-01-10 00:00 | MEDROXYPROGESTERONE | [facility] | | | ACETATE | | + + + + | 2019-05-26 00:00 | ONDANSETRON HCL | [facility] | + + + + | 2019-05-26 00:00 | ONDANSETRON HCL | [facility] | + + + + | 2019-05-26 00:00 | ONDANSETRON HCL | [facility] | + + + + | 2019-05-26 00:00 | ONDANSETRON HCL | [facility] | + + + + | 2022-05-09 00:00 | PHENAZOPYRIDINE HCL | [facility] | + + + + | 2022-05-09 00:00 | PHENAZOPYRIDINE HCL | [facility] | + + + + | 2022-05-09 00:00 | PHENAZOPYRIDINE HCL | [facility] | + + + + | 2022-05-09 00:00 | PHENAZOPYRIDINE HCL | [facility] | + + + + | 2022-05-09 00:00 | CEPHALEXIN | [facility] | + + + + | 2022-05-09 00:00 | CEPHALEXIN | [facility] | + + + + | 2022-05-09 00:00 | CEPHALEXIN | [facility] | + + + + | 2022-05-09 00:00 | CEPHALEXIN | [facility] | + + + + | 2022-08-16 00:00 | OMEPRAZOLE | [facility] | + + + + | 2022-10-26 00:00 | OMEPRAZOLE | [facility] | + + + + | 2023-01-10 00:00 | OMEPRAZOLE | [facility] | + + + + | 2022-05-09 00:00 | ESCITALOPRAM OXALATE | [facility] | + + + + | 2022-08-16 00:00 | ESCITALOPRAM OXALATE | [facility] | + + + + | 2022-10-26 00:00 | ESCITALOPRAM OXALATE | [facility] | + + + + | 2023-01-10 00:00 | ESCITALOPRAM OXALATE | [facility] | + + + + | 2022-05-09 00:00 | LEVONORGESTREL-ETH | [facility] | | | ESTRADIOL | | + + + + | 2022-08-16 00:00 | LEVONORGESTREL-ETH | [facility] | | | ESTRADIOL | | + + + + | 2022-10-26 00:00 | LEVONORGESTREL-ETH | [facility] | | | ESTRADIOL | | + + + + | 2023-01-10 00:00 | LEVONORGESTREL-ETH | [facility] | | | ESTRADIOL | | + + + + | 2013-08-01 00:00 | TRAMADOL HCL | [facility] | + + + + | 2013-08-01 00:00 | TRAMADOL HCL | [facility] | + + + + | 2013-08-01 00:00 | TRAMADOL HCL | [facility] | + + + + | 2013-08-01 00:00 | TRAMADOL HCL | [facility] | + + + + | 2019-05-26 00:00 | HYDROCODONE | [facility] | | | BIT/ACETAMINOPHEN | | + + + + | 2019-05-26 00:00 | HYDROCODONE | [facility] | | | BIT/ACETAMINOPHEN | | + + + + | 2019-05-26 00:00 | HYDROCODONE | [facility] | | | BIT/ACETAMINOPHEN | | + + + + | 2019-05-26 00:00 | HYDROCODONE | [facility] | | | BIT/ACETAMINOPHEN | | + + + + Problems + + + + | date | description | facility | + + + + | 2019-05-26 00:00 | Abdominal pain | [facility] | + + + + | 2019-05-26 00:00 | Abdominal pain | [facility] | + + + + | 2019-05-26 00:00 | Abdominal pain | [facility] | + + + + | 2019-05-26 00:00 | Abdominal pain | [facility] | + + + + | 2022-05-09 00:00 | Urinary tract infection | [facility] | + + + + | 2022-05-09 00:00 | Urinary tract infection | [facility] | + + + + | 2022-05-09 00:00 | Urinary tract infection | [facility] | + + + + | 2022-05-09 00:00 | Urinary tract infection | [facility] | + + + + | [...] + + | 2022-08-15 21:22 | OTHER ALF (CURRENT) | [facility] | | | DRUG TH[facility] | | + + + + | 2022-08-16 00:00 | Cyst of left ovary | [facility] | + + + + | 2022-08-16 00:00 | Cyst of left ovary | [facility] | + + + + | 2022-08-16 00:00 | Cyst of left ovary | [facility] | + + + + | [...] 2022-10-26 00:00 | Normal intrauterine | [facility] | | | on | [...] 00:00 | Contusion of foot | [facility] | + + + + [...] + + | 2023-01-10 20:06 | OTHER COMPUTER ENGINEERING TECHNICIAN (CURRENT) | [facility] | | | DRUG [...] | | + + + + | 2023-03-02 16:57 | ENCNTR FOR SUPRVSN OF | [facility] | | | NORMAL PREG, UNSP, THIRD | | | | TRIMESTER | | + + + + | 2023-03-02 16:57 | 33 WEEKS GESTATION OF | [facility] | | | | | + + + + | 2023-03-03 15:20 | OTH RELATED | [facility] | | | CONDITIONS, THIRD TRIMESTER | | | | | | + + + + | 2023-03-03 15:20 | OTHER SYMPTOMS AND SIGNS | [facility] | | | INVOLVING THE GENITOURINA | | + + + + | 2023-03-03 15:20 | 33 WEEKS GESTATION OF | [facility] | | | | | + + + + | 2023-03-03 22:15 | INFECTIONS OF KIDNEY IN | [facility] | | | , THIRD TRIMESTER | | + + + + | 2023-03-03 22:15 | 33 WEEKS GESTATION OF | [facility] | | | | | + + + + | 2023-03-08 15:33 | MATERN CARE FOR DISPROPRTN | [facility] | | | D/T GENERALLY CONTRACTED | | | | PELVIS | | + + + + | 2023-03-11 14:00 | PREMATURE SEPARATION OF | [facility] | | | PLACENTA, UNSP, | | + + + + | 2023-03-11 14:02 | PREMATURE SEPARATION OF | [facility] | | | PLACENTA, UNSP, THIRD | | | | TRIMESTER | | + + + + | 2023-03-11 14:02 | PREMATURE SEPARATION OF | [facility] | | | PLACENTA, UNSP, | | + + + + | 2023-03-25 14:00 | PREMATURE SEPARATION OF | [facility] | | | PLACENTA, UNSP, | | + + + + Procedures [...] (missing) | | (unavailable | 21:50:08 | [facility] | | | | | ) | [...] (missing) | (missing) | | (unavailable | : | [facility] | | | | + + + +--------+ + + + + | Result panel 106 | + + + + + +-------+---------+ + | | 2022-10-25 | [facility] | 8.4 | mg/dL | (missing) | | (unavailable | ::07 | [facility] | | | | + + + +-------+---------+ + + + | Result panel 107 | + + + + + +-------+---------+ + | | 2022-10-25 | [facility] | 1.8 | mg/dL | (missing) | | (unavailable | : | [facility] | | | | [...]
[2023-03-17 03:29] LABS: HEMATOCRIT 34.4 % (35.0-50.0); HEMOGLOBIN 11.7 g/dL (12.0-18.0); MCHC 33.9 g/dl (30-36); MCV 94.6 fl (81-99); RBC 3.64 M/ul (4.3-5.7); RDW 13.3 (10.5-15.0)
[2023-03-17 04:15] LABS: AMPHETAMINES, UR NEGATIVE (NEGATIVE); BARBITURATES, UR NEGATIVE (NEGATIVE); BENZODIAZEPINES, UR NEGATIVE (NEGATIVE); BUPRENORPHINE,UR NEGATIVE (NEGATIVE); COCAINE, UR NEGATIVE (NEGATIVE); MARIJUANA (THC), UR NEGATIVE (NEGATIVE); MDMA, UR NEGATIVE (NEGATIVE); METHADONE, UR NEGATIVE (NEGATIVE); METHAMPHETAMINE, UR NEGATIVE (NEGATIVE); OPIATES, UR NEGATIVE (NEGATIVE); OXYCODONE, UR NEGATIVE (NEGATIVE); PHENCYCLIDINE, UR NEGATIVE (NEGATIVE); TRICYCLIC ANTIDEPRESSANT, UR NEGATIVE (NEGATIVE)
[2023-03-17 04:40] LABS: ABO A; RH NEGATIVE
[2023-03-17 04:41] LABS: ANTIBODY SCREEN POSITIVE
[2023-03-17 04:44] LABS: ANTIBODY IDENTIFICATION ANTI-D
[2023-03-17 04:57] VITALS: BP 105/67
--- NOTE | 2023-03-17 10:15 | PR ---
[place] [facility] [address] [facility] [place], [place] [address] Signed Progress Notes IP Datetime Report Generated by CPN: 03/17/2023 10:15 PROGRESS NOTES: [id number] Impression: Reassuring Heart Rate Procedures: Artificial ROM Plan: Continue Present Management VITAL SIGNS: [id number] Vital Signs: Reviewed EXAM: [id number] Dilatation: 6.0 Effacement: 75 Station: -3 Contractions: not tracing MEMBRANES: [id number] Pooling: Negative Membranes Status: Intact Amniotic Fluid Color: Clear ROM Note: Forebag ruptured by Dr. Vogel Comments: Residual bag palpable, AROM without difficulty. Pt still very comfortable with contractions. Recheck in 2h or sooner if feeling rectal pressure/ urge to push/ indication. FETUS A: [id number] FHR Baseline: 120 Variability: Moderate 6-25bpm Accelerations: 15X15 Decelerations: None FHR Category: Category I Presentation: Vertex Comments on Fetus A: No evidence of acidemia FETUS B: [id number] Signing Physician: Bentley Vogel DO Copies: ~ *Electronically Signed* 03/17/23 1015 BENTLEY VOGEL DO PATIENT NAME: SUSANNE TEMPLE PROGRESS NOTE DATE OF : 95 PHYSICIAN: BENTLEY VOGEL DO RPT #: [id number] REPORT IS CONFIDENTIAL AND NOT TO BE RELEASED WITHOUT AUTHORIZATION
[2023-03-18 05:49] LABS: HEMOGLOBIN 11.5 g/dL (12.0-18.0); MCH 32.3 (27-36); MCV 95.1 fl (81-99); RBC 3.57 M/ul (4.3-5.7); RDW 13.2 (10.5-15.0)
[2023-03-18 06:49] LABS: ABO A; ANTIBODY SCREEN POSITIVE; RH NEGATIVE
[2023-03-18 06:50] LABS: FETAL HEMOGLOBIN SCREEN NEGATIVE; RHIG DOSE 1; RHIG STATUS CANDIDATE; RHIG VIAL 1 D4MDF00013-Q
--- NOTE | 2023-03-18 10:30 | PR ---
[facility] [address] [place], [place] [address] Signed PP Progress Notes Datetime Report Generated by CPN: 03/18/2023 10:30 SUBJECTIVE: [id number] Pain: Within Normal Limits Nausea/Vomiting: Denies Vital Signs: [id number] Vital Signs: Reviewed; Within Normal Limits EXAM: Ongoing Cardiovascular: Normal Respiratory: Normal Abdomen/Uterus: Normal Lochia: Normal Vulva/Perineum: Normal Breasts: Normal CVA Tenderness: Normal Extremities: Normal Progress: Normal Exam Comments: NAD, getting Rhogam from RN RRR No dyspnea/ retractions Abd SNTND, FFBU Ext: trace edema, neg John's BL IMPRESSION/PLAN/PROCEDURES: [id number] Impression: Normal Progression Plan: Continue Present Management Procedures: Rhogam Progress Notes: PPD#1 s/p uncomplicated after PPROM @ 35 3/7 weeks gestation -progressing well : ambulating, voiding, pain well-controlled with orals, lochia light, tolerating regular diet -hgb stable, 11.5 from 11.7 on admission - without difficulty, planning tubal sterilization for contraception Anticipate DC to home tomorrow if baby cleared by peds Signing Physician: Bentley Vogel DO Copies: *Electronically Signed* 03/18/23 1030 BENTLEY VOGEL DO PATIENT NAME: SUSANNE TEMPLE PROGRESS NOTE DATE OF : 95 PHYSICIAN: BENTLEY VOGEL DO RPT #: [id number] REPORT IS CONFIDENTIAL AND NOT TO BE RELEASED WITHOUT AUTHORIZATION [address], [place] [address] Signed ~ *Electronically Signed* 03/18/23 1030 BENTLEY VOGEL DO PATIENT NAME: SUSANNE TEMPLE PROGRESS NOTE DATE OF : 95 PHYSICIAN: BENTLEY VOGEL DO RPT #: [id number] REPORT IS CONFIDENTIAL AND NOT TO BE RELEASED WITHOUT AUTHORIZATION
[2023-03-18 23:34] LABS: STREPTOCOCCUS (GROUP B) BY PCR Not Detected (()); STREPTOCOCCUS (GROUP B) SOURCE Vaginal/Rectal (())
--- NOTE | 2023-03-19 11:49 | PR ---
[facility] [address] [facility] [place], [place] [address] Signed PP Progress Notes Datetime Report Generated by CPN: 03/19/2023 11:49 SUBJECTIVE: [id number] Pain: Within Normal Limits Nausea/Vomiting: Denies Vital Signs: [id number] Vital Signs: Reviewed; Within Normal Limits EXAM: Ongoing Cardiovascular: Normal Respiratory: Normal Abdomen/Uterus: Normal Lochia: Normal Vulva/Perineum: Normal Breasts: Normal CVA Tenderness: Normal Extremities: Normal Progress: Normal Exam Comments: NAD, sitting in bed RRR No dyspnea/ retractions Abd SNTND, FFBU Ext: trace edema, neg John's BL IMPRESSION/PLAN/PROCEDURES: [id number] Impression: Normal Progression Plan: Continue Present Management; Discharge Procedures: None Progress Notes: PPD#2 s/p after PPROM @ 35 3/7 weeks gestation Pt progressing very well : ambulating, voiding, lochia light, tolerating regular diet Plan: DC to boarder status today (Annotations: Data stored by N on behalf of user) Signing Physician: Bentley Vogel DO Copies: ~ *Electronically Signed* 03/19/23 1149 BENTLEY VOGEL DO PATIENT NAME: SUSANNE TEMPLE PROGRESS NOTE DATE OF : 95 PHYSICIAN: BENTLEY VOGEL #: [id number] REPORT IS CONFIDENTIAL AND NOT TO BE RELEASED WITHOUT AUTHORIZATION
== END 2023-03-19 13:45 | disposition home or self-care (01) | DRG 805 ==
LOC: FBCO 02:14 → FBC 02:43
PROVIDERS: Obstetrics & Gynecology; ADMIT Obstetrics & Gynecology; ATTEND Obstetrics & Gynecology
PROC: 10E0XZZ Delivery of Products of Conception, External Approach (ICD-10-PCS; principal; 2023-03-17)
PROC: 10907ZC Drainage of Amniotic Fluid, Therapeutic from Products of Conception, Via Natural or Artificial Opening (ICD-10-PCS; 2023-03-17)
PROC: 00HU33Z Insertion of Infusion Device into Spinal Canal, Percutaneous Approach (ICD-10-PCS; 2023-03-17)
PROC: 3E0R3BZ Introduction of Anesthetic Agent into Spinal Canal, Percutaneous Approach (ICD-10-PCS; 2023-03-17)
PROC: 3E033VJ Introduction of Other Hormone into Peripheral Vein, Percutaneous Approach (ICD-10-PCS; 2023-03-17)
DX: O42.013 Preterm premature rupture of membranes, onset of labor within 24 hours of rupture, third trimester (principal); O60.14X0 Preterm labor third trimester with preterm delivery third trimester, not applicable or unspecified; Z37.0 Single live birth; O76 Abnormality in fetal heart rate and rhythm complicating labor and delivery; O36.5930 Maternal care for other known or suspected poor fetal growth, third trimester, not applicable or unspecified; O99.344 Other mental disorders complicating childbirth; F32.A Depression, unspecified; F41.9 Anxiety disorder, unspecified; Z3A.35 35 weeks gestation of pregnancy; Z67.11 Type A blood, Rh negative; Z98.84 Bariatric surgery status; Z87.59 Personal history of other complications of pregnancy, childbirth and the puerperium
CPT/HCPCS: 01960; 36415; 83030; 85027; 86850; 86870; 86900; 86901; 87653; A9270; J2540; J2590; J2790; J2795; J7121

== ENCOUNTER 2024-01-10 08:00 | Day surgery (SDC) | payer OTHER ==
[2024-01-05 14:05] VITALS: BP 98/65
[~2024-01-10] VITALS: Ht 175.3 cm; Wt 73.0 kg
--- NOTE | ~2024-01-10 | OR ---
[facility] [address] [place], [place] [address] Draft DATE OF OPERATION: 01/10/2024 SURGEON: Geraldo Rai DO PREOPERATIVE DIAGNOSES: 1. Desires salpingectomy. 2. IUD removal. POSTOPERATIVE DIAGNOSES: 1. Desires salpingectomy. 2. IUD removal. 3. Endometriosis of the cul-de-sac. PROCEDURES PERFORMED: 1. Laparoscopic bilateral salpingectomy. 2. Excision of endometriosis of the cul-de-sac. 3. IUD removal. BASE ENGINEER: None. ANESTHESIA: General. ESTIMATED BLOOD LOSS: 50 mL. SPECIMEN: Endometriotic lesion of the cul-de-sac. FINDINGS: Normal external genitalia with normal clitoris, urethral meatus, bilateral [place]'s, Bartholin's glands. IUD was removed without difficulty. On laparoscopy, normal liver, stomach, uterus, tubes, and ovaries. There is a black powder-burn lesion of the uterosacral ligament and cul-de-sac posteriorly that was removed without difficulty with excellent hemostasis. INDICATIONS: Ms. Zuluaga is a very pleasant 28-year-old female, who desires bilateral salpingectomy and IUD removal. We reviewed that [facility] allows bilateral salpingectomy PATIENT NAME: SUSANNE ZULUAGA OPERATIVE REPORT DATE OF : 95 REPORT #: [id number] PHYSICIAN: GERALDO RAI (JED) DO PCP: JERRY SEGOVIA MD REPORT IS CONFIDENTIAL AND NOT TO BE RELEASED WITHOUT AUTHORIZATION [facility] [address] [place], [place] [address] Draft primarily for ovarian risk cancer reduction. Risks, benefits, and alternatives were discussed in detail with the patient. The patient understands and wished to proceed with the procedure. DESCRIPTION OF PROCEDURE: The patient was taken to the OR where a time-out was performed to confirm correct patient and correct procedure. General anesthesia was adequately established. The patient was prepped and draped in the dorsal lithotomy position with her feet in Yellofin stirrups. ICPs were on and running. No preoperative antibiotics were indicated. A Boyer catheter was inserted. A weighted speculum was placed in the vagina and the anterior lip of the cervix was grasped with an Allis clamp. The IUD strings were noted and the IUD was easily removed using ring forceps. A Nativo uterine manipulator was placed. The surgeon's gloves were changed and attention was turned to the abdomen. The base of the umbilicus was infiltrated with 0.25% Marcaine with epinephrine and a 5 mm port was placed under direct visualization without complication. 5 mm assist ports were placed in the left lower quadrant and right lower quadrant under direct visualization without complication. Survey of the abdomen and pelvis was performed demonstrating a normal liver, gallbladder, stomach, uterus, tubes, and ovaries. Deep in the pelvis just distal to the left uterosacral ligament and the cul-de-sac, there was a black powder-burn lesion consistent with endometriosis. to my conversation with the patient preoperatively, decision was made to proceed with both bilateral salpingectomy and excision of endometriosis. The left fallopian tube was grasped at the fimbriated end, elevated and divided along the mesosalpinx with excellent hemostasis. The tube was amputated at the cornu. The tube was delivered and sent to pathology for further evaluation. The process was repeated on the right side with division along the mesosalpinx of the entire fallopian tube including the fimbria. The tube was amputated at the cornu. Attention was then turned to the endometriotic lesion in the cul-de-sac. This was grasped with fine graspers elevated and the peritoneum was sharply excised. The lesion was undermined and no deep infiltrating endometriosis was noted. The entire lesion was excised and sent to pathology for further evaluation. Careful monopolar cautery was used to ensure hemostasis. The pelvis was irrigated and found to be hemostatic. Pneumoperitoneum was reduced. Trocars were removed. Trocar sites were repaired using 3-0 Vicryl Rapide. The Hulka uterine manipulator and the Boyer catheter were removed. The patient was taken to PACU in good and stable condition. Sponge, needle and instrument count were correct x2 at the end of the procedure. Geraldo Rai DO PATIENT NAME: SUSANNE ZULUAGA OPERATIVE REPORT DATE OF : 95 REPORT #: [id number] PHYSICIAN: GERALDO RAI (JED) PCP: JERRY SEGOVIA MD REPORT IS CONFIDENTIAL AND NOT TO BE RELEASED WITHOUT AUTHORIZATION [facility] [address] [place] [id number] Draft JDW/MODL /[id number] Copies: ~ PATIENT NAME: SUSANNE ZULUAGA OPERATIVE REPORT DATE OF : 95 REPORT #: [id number] PHYSICIAN: GERALDO RAI) PCP: JERRY SEGOVIA MD REPORT IS CONFIDENTIAL AND NOT TO BE RELEASED WITHOUT AUTHORIZATION
[~2024-01-10 08:00] MED LIST changes: +IBLOOD GLUCOSE TEST STRIP 1 EA TEST VI PRN; +LACTATED RINGER'S 1,000 ML IV SCH; +LIDOCAINE HCL 1% 5 ML SDV INJ ONE
[2024-01-10 08:18] VITALS: BP 114/70
[2024-01-10] MEDS ORDERED: fentaNYL citrate 100 MCG/2 ML VIAL ONE (11:11)
[2024-01-10] MEDS ORDERED: KETAMINE in NS 50 MG/5 ML SYR ONE (11:12)
[2024-01-10] MEDS ORDERED: KETOROLAC TROMETHAMINE 30 MG/ML VIAL ONE (11:12)
[2024-01-10] MEDS ORDERED: dexmedeTOMIDine HCl 200 MCG/2 ML VIAL ONE (11:12)
[2024-01-10] MEDS ORDERED: DEXAMETHASONE SOD PHOS 4 MG/ML VIAL ONE (11:12)
[2024-01-10] MEDS ORDERED: propofoL 200 MG/20 ML VIAL ONE (11:12)
[2024-01-10] MEDS ORDERED: ROCURONIUM BROMIDE 50 MG/5 ML SYR ONE (11:12)
[2024-01-10] MEDS ORDERED: ondansetron HCL 4 MG/2 ML VIAL ONE (11:12)
[2024-01-10] MEDS ORDERED: LIDOCAINE HCL 2% 5 ML SDV ONE (11:12)
[2024-01-10] MEDS ORDERED: ACETAMINOPHEN 1,000 MG/100 ML VIAL ONE (11:15)
[2024-01-10] MEDS ORDERED: ePHEDrine sulfate 50 MG/ML AMP ONE (11:36)
[2024-01-10] MEDS ORDERED: SUGAMMADEX SODIUM 200 MG/2 ML ML ONE (12:09)
[2024-01-10] MEDS ORDERED: droPERidol 5 MG/2 ML VIAL IV PRN (12:15)
[2024-01-10] MEDS ORDERED: fentaNYL citrate 50 MCG/ML SDV IV PRN (12:15)
[2024-01-10] MEDS ORDERED: NALOXONE HCL 0.4 MG SYR IV PRN ×2 (12:15→13:15)
[2024-01-10] MEDS ORDERED: HYDROmorphone HCL 1 MG/ML SYR IV PRN (12:15)
[2024-01-10] MEDS ORDERED: ondansetron HCL 4 MG/2 ML VIAL IV PRN ×2 (12:15→13:15)
[2024-01-10] MEDS ORDERED: PROCHLORPERAZINE EDISYLATE 10 MG/2 ML VIAL IV PRN (12:15)
[2024-01-10] MEDS ORDERED: IBLOOD GLUCOSE TEST STRIP 1 EA TEST VI PRN (12:15)
--- NOTE | 2024-01-10 12:58 | NUR ---
01/10/24 1258 Tasha Byrd 1252- PT ARRIVES TO PACU AWAKE AND TALKING. PT REPORTS NO PAIN OR NAUSEA. RESP EVEN AND UNLABORED. OXYGEN SAT HIGH 90'S TO 100% ON 6L VIA MASK. 1258- OXYGEN TITRATED OFF. PT SAT UP SLIGHTLY IN BED PER HER REQUEST.
[2024-01-10] MEDS ORDERED: MORPHINE SULFATE 10 MG/ML VIAL IV PRN (13:15)
[2024-01-10] MEDS ORDERED: OXYCODONE/APAP 5/325 TAB PO PRN (13:15)
[2024-01-10] MEDS ORDERED: METOCLOPRAMIDE HCL 10 MG/2 ML SDV IV PRN (13:15)
[2024-01-10] MEDS ORDERED: FAMOTIDINE 20 MG TAB PO PRN (13:15)
[2024-01-10 13:18] VITALS: BP 108/63
--- NOTE | 2024-01-10 14:06 | NUR ---
LE 1345-PT UP TO BEDSIDE. DENIES DIZZINESS. PT AMBULATES TO RESTROOM. GAIT STEADY AND TOLERATED WELL. PT VOIDED 25ML OF YELLOWISH PINK URINE. LE 1350-PT AMBULATES BACK TO ROOM. PT LAYING IN BED. NO OTHER NEEDS AT THIS TIME. CALL LIGHT WITHIN REACH.
--- NOTE | 2024-01-10 14:20 | NUR ---
1420-PT AMBULATES TO RESTROOM WITH 1 RN ASSIST. GAIT STEADY AND TOLERATED WELL. PT VOIDS 100ML OF URINE. 1425-PT BACK TO ROOM. 1428-PT LAYING IN BED. RESP EVEN AND UNLABORED. STATES "LITTLE SORE". DENIES NAUSEA. PT IS READY TO GO HOME. PT WILL GET DRESSED. MOM IN ROOM TO HELP. CALL LIGHT WITHIN REACH.
[2024-01-10 14:28] VITALS: BP 105/61
--- NOTE | 2024-01-10 14:45 | NUR ---
1445-WENT OVER DISCHARGE INSTRUCTIONS WITH PT AND HER MOM. ALL QUESTIONS ANSWERED. PT AMBULATES TO WHEELCHAIR AND RIDE PROVIDED TO FRONT OF HOSPITAL WHERE RIDE WAS WAITING WITH THE CAR.
[2024-01-10] MEDS ORDERED: SIMETHICONE 125 MG TABLET CHEWABLE PO SCH (17:00)
--- NOTE | 2024-01-17 16:29 | PATH ---
[facility] [address] [place], [place] [address] Signed SPECIMEN(S): A FALLOPIAN TUBES SPECIMEN(S): B ENDOMETRIOSIS LESION SPECIMEN SOURCE: A. FALLOPIAN TUBES B. ENDOMETRIOSIS LESION CLINICAL HISTORY: Bilateral salpingectomy. A/B) risk reduction for neoplasm of ovaries FINAL PATHOLOGIC DIAGNOSIS: A. Fallopian tubes, bilateral, salpingectomy: - Fimbriated fallopian tube segments (two) with no significant pathologic changes B. Designated "endometriosis lesion": - Endometriosis BRP MICROSCOPIC EXAMINATION: Histologic sections of all submitted blocks are examined by light microscopy. These findings, together with the gross examination, support the pathologic diagnosis. GROSS DESCRIPTION: A. The specimen, labeled and designated "Zuluaga, M, " and designated on the requisition "bilateral fallopian tubes," is received in formalin and consists of two undesignated fallopian tubes that measure 6.5 x 0.9 cm and 4.8 x 1.5 cm. The serosal surfaces are violaceous and smooth with delicate fimbriae. One tube is arbitrarily inked. Fimbriae are entirely submitted. Chamber Worker sections are submitted in (A1-A2). B. The specimen, labeled and designated "Zuluaga, M, " and designated on the requisition "endometriosis lesion," is received in formalin and consists of 1.0 x 0.9 x 0.4 cm pale pink membranous tissue fragment with attached yellow-mcneill adipose tissue. The specimen is inked, trisected and entirely submitted cassette A1. FB (under the direct supervision of a pathologist) The Gross Description was prepared using a voice recognition system. The report was reviewed for accuracy; however, sound-alike word errors, addition and/or deletions may occur. If there is any PATIENT NAME: SUSANNE ZULUAGA PATHOLOGY DATE OF : 95 REPORT #: [id number] PHYSICIAN: RAMESH LEW PCP: JERRY SEGOVIA MD REPORT IS CONFIDENTIAL AND NOT TO BE RELEASED WITHOUT AUTHORIZATION [facility] [address] [place], [place] [address] Signed question about this report, please contact Client Services. ADDITIONAL NOTES: Immunohistochemical and/or in situ hybridization studies if performed in this case included appropriate positive controls that reacted as expected. This test was developed and its performance characteristics determined by [facility]. It has not been cleared or approved by the U.S. Food and Drug Administration. The FDA has determined that such clearance or approval is not necessary. This test is used for clinical purposes. It should not be regarded as investigational or for research. [facility] is certified under the Clinical Laboratory Improvement Amendments of 1988 (CLIA) as qualified to perform high complexity clinical laboratory testing. PERFORMING LABORATORY: Technical component was performed by [facility], [address] [place] [address] (CLIA# [id number]). Professional interpretation was performed by [facility] [address] [place] [id number] Diagnostician: Juan José Shook MD Pathologist Electronically Signed 01/17/2024 Copies: ~ PATIENT NAME: SUSANNE ZULUAGA PATHOLOGY DATE OF : 95 REPORT #: [id number] PHYSICIAN: RAMESH PATHOLOGY PCP: JERRY SEGOVIA MD REPORT IS CONFIDENTIAL AND NOT TO BE RELEASED WITHOUT AUTHORIZATION
== END 2024-01-10 14:45 | disposition home or self-care (01) ==
LOC: OPS 08:00 → DS 08:00 → OPS 10:20 → DS 10:20 → OPS 14:45
PROVIDERS: ATTEND Obstetrics & Gynecology
PROC: 0UB74ZZ Excision of Bilateral Fallopian Tubes, Percutaneous Endoscopic Approach (ICD-10-PCS; 2024-01-10)
PROC: 0UT24ZZ Resection of Bilateral Ovaries, Percutaneous Endoscopic Approach (ICD-10-PCS; 2024-01-10)
PROC: 0UPD0HZ Removal of Contraceptive Device from Uterus and Cervix, Open Approach (ICD-10-PCS; principal; 2024-01-10 10:20)
DX: Z40.03 Encounter for prophylactic removal of fallopian tube(s) (principal); Z40.02 Encounter for prophylactic removal of ovary(s); N80.329 Endometriosis of the posterior cul-de-sac, unspecified depth; R87.612 Low grade squamous intraepithelial lesion on cytologic smear of cervix (LGSIL); Z90.722 Acquired absence of ovaries, bilateral
CPT/HCPCS: 00840; 88302; 88304; 88305; J0131; J1100; J1885; J2001; J2405; J2704; J3010; J3490; J7121